=== PATIENT | female | born 1995 | race Caucasian/White ===

== ENCOUNTER 2016-06-10 14:34 | Emergency (ER) | payer OTHER ==
[~2016-06-10] VITALS: Ht 154.9 cm; Wt 56.9 kg
[2016-06-10 14:53] VITALS: BP 126/85; PULSE 95; RESP 15; TEMP 98.7; O2SAT 98
--- NOTE | 2016-06-10 15:35 | PD ---
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 She also complains of pelvic discomfort. However, she states it is not pain. She denies any vomiting, fevers, unusual vaginal discharge, or other symptoms. Modifying Factors: None Associated Signs & Symptoms: Vaginal bleeding Risk Factors: Recently sexually active PFSH Past Medical History LMP: 10 DAYS Social History Tobacco Use: No Allergies-Medications (Allergen,Severity, Reaction): Coded Allergies: No Known Allergies (Unverified , 06/10/16) Reported Meds & Prescriptions Reported Meds & Active Scripts Active No Active Prescriptions or Reported Medications Review of Systems Except as stated in HPI: all other systems reviewed are Neg Physical Exam Narrative GENERAL: Young white female patient currently awake, alert, oriented 3, not in acute distress. SKIN: Warm and dry. HEAD: Atraumatic. Normocephalic. EYES: Pupils equal and round. No scleral icterus. No injection or drainage. ENT: No nasal bleeding or discharge. Mucous membranes pink and moist. NECK: Trachea midline. No JVD. CARDIOVASCULAR: Regular rate and rhythm. No murmur appreciated. RESPIRATORY: No accessory muscle use. Clear to auscultation. Breath sounds equal bilaterally. GASTROINTESTINAL: Abdomen soft, mild pelvic tenderness without guarding or rebound, nondistended. Hepatic and splenic margins not palpable. GENITOURINARY: Normal external genitalia without lesions or erythema, she has a minor posterior full the laceration with small amount of blood. Vaginal vault with red blood but no significant drainage. Cervical os was closed without drainage. No cervical motion tenderness. Uterus nontender and nonenlarged. Bilateral adnexa nontender without masses. MUSCULOSKELETAL: No obvious deformities. No clubbing. No cyanosis. No edema. NEUROLOGICAL: Awake and alert. No obvious cranial nerve deficits. Motor grossly within normal limits. Normal speech. PSYCHIATRIC: Appropriate mood and affect; insight and judgment normal. Data Data Last Documented VS Vital Signs Date Time Temp Pulse Resp B/P Pulse Ox O2 Delivery O2 Flow Rate FiO2 06/10/16 15:58 97 06/10/16 14:53 98.7 95 15 126/85 Orders Beta Hcg (Quant/Titer) (06/10/16 15:31) Complete Blood Count With Diff (06/10/16 15:31) Comprehensive Metabolic Panel (06/10/16 15:31) Urinalysis - C+S If Indicated (06/10/16 15:31) Iv Access Insert/Monitor (06/10/16 15:31) Ecg Monitoring (06/10/16 15:31) Oximetry (06/10/16 15:31) Sodium Chloride 0.9% Flush (Ns Flush) (06/10/16 15:45) Ed Urine Pregnancytest Poc (06/10/16 15:31) Gc And Chlamydia Pcr (06/10/16 15:31) Wet Prep Profile (06/10/16 15:31) Urine Culture (06/10/16 15:35) Labs Laboratory Tests Test 06/10/16 06/10/16 06/10/16 15:35 15:45 16:05 Urine Collection Type CLEAN CATCH Urine Color YELLOW Urine Turbidity SLIGHT Urine pH 5.5 Urine Specific [place] 1.014 Urine Protein TRACE mg/dL Urine Glucose (UA) NEG mg/dL Urine Ketones NEG mg/dL Urine Occult Blood LARGE Urine Nitrite NEG Urine Bilirubin NEG Urine Leukocyte Esterase NEG Urine RBC INNUM /hpf Urine WBC 15-19 /hpf Urine Squamous Epithelial 0-5 /hpf Cells Microscopic Urinalysis Comment CULTURE INDICATED Urine Collection Time 15:35 White Blood Count 10.3 TH/MM3 Red Blood Count 4.65 MIL/MM3 Hemoglobin 13.0 GM/DL Hematocrit 39.0 % Mean Corpuscular Volume 83.9 FL Mean Corpuscular Hemoglobin 28.0 PG Mean Corpuscular Hemoglobin 33.3 % Concent Red Cell Distribution Width 13.1 % Platelet Count 157 TH/MM3 Mean Platelet Volume 9.1 FL Neutrophils (%) (Auto) 77.8 % Lymphocytes (%) (Auto) 14.0 % Monocytes (%) (Auto) 5.9 % Eosinophils (%) (Auto) 0.9 % Basophils (%) (Auto) 1.4 % Neutrophils # (Auto) 8.1 TH/MM3 Lymphocytes # (Auto) 1.4 TH/MM3 Monocytes # (Auto) 0.6 TH/MM3 Eosinophils # (Auto) 0.1 TH/MM3 Basophils # (Auto) 0.1 TH/MM3 CBC Comment DIFF FINAL Differential Comment Sodium Level 142 MEQ/L Potassium Level 3.8 MEQ/L Chloride Level 112 MEQ/L Carbon Dioxide Level 21.8 MEQ/L Anion Gap 8 MEQ/L Blood Urea Nitrogen 10 MG/DL Creatinine 0.83 MG/DL Estimat Glomerular Filtration 86 ML/MIN Rate Random Glucose 81 MG/DL Calcium Level 8.5 MG/DL Total Bilirubin 0.7 MG/DL Aspartate Amino Transf 12 U/L (AST/SGOT) Alanine Aminotransferase 18 U/L (ALT/SGPT) Alkaline Phosphatase 53 U/L Total Protein 7.0 GM/DL Albumin 3.8 GM/DL Human Chorionic Gonadotropin, LESS THAN 1 Quant MIU/ML Clue Cells (Wet Prep) NONE SEEN Vaginal Trichomonas (Wet Prep) NONE SEEN Vaginal Yeast (Wet Prep) NONE SEEN MDM Medical Decision Making Medical Screen Exam Complete: Yes Emergency Medical Condition: Yes Medical Record Reviewed: Yes Interpretation(s) Laboratory Tests Test 06/10/16 06/10/16 15:35 15:45 Urine Occult Blood LARGE (NEG) Urine RBC INNUM /hpf (0-3) Urine WBC 15-19 /hpf (0-5) Neutrophils (%) (Auto) 77.8 % (16.0-70.0) Neutrophils # (Auto) 8.1 TH/MM3 (1.8-7.7) Chloride Level 112 MEQ/L (98-107) Estimat Glomerular Filtration 86 ML/MIN (>89) Rate Aspartate Amino Transf 12 U/L (15-37) (AST/SGOT) Differential Diagnosis Pelvic discomfort, vaginal bleedingdysfunctional uterine bleeding versus vaginal lacerations versus UTI versus threatened AB versus ectopic Narrative Course On exam I do not see any obvious significant vaginal lacerations, just some minor one posteriorly. This does not appear to be bleeding significantly. Lab work shows that she is not . Abdomen is fairly benign and I'm not suspecting acute intra-abdominal process. Her wet prep is negative. She does have a UTI. I talked her further and she states that she did have sex last night but it was not especially rough or painful. At this point, my plan would be to release her with follow-up to CHEMISTRY SPECIALIST. Return for any worsening in symptoms, bleeding, pain, and as needed. The plan was discussed with her and she states understanding. Diagnosis Primary Impression: Vaginal bleeding between periods Scripts No Active Prescriptions or Reported Meds Disposition: 01 DISCHARGE HOME Condition: Stable Gaby Soto MD Jun 10, 2016 15:35
[2016-06-10] MEDS ORDERED: SODIUM CHLORIDE 0.9% FLUSH 10 ML FLUSH IV FLUSH PRN (15:45)
[2016-06-10 15:47] LABS: BLOOD, URINE LARGE (NEG); GLUCOSE,URINE NEG (NEG); KETONE, URINE NEG (NEG); NITRITE,URINE NEG (NEG); PH, URINE 5.5 (5.0-8.5)
[2016-06-10 15:51] LABS: METHOD OF COLLECTION CLEAN CATCH; URINE COLOR YELLOW (YELLW/STRAW)
[2016-06-10 15:51] LABS: AUTOMATED NEUTROPHIL # 8.1 TH/MM3 (1.8-7.7); BASOPHIL # 0.1 TH/MM3 (0-0.2); BASOPHIL % 1.4 % (0.0-2.0); EOSINOPHIL # 0.1 TH/MM3 (0-0.4); EOSINOPHIL % 0.9 % (0.0-4.0); HEMO FLAGS DIFF FINAL; LYMPHOCYTE # 1.4 TH/MM3 (1.0-4.8); MEAN CELL VOLUME 83.9 FL (80.0-100.0); MEAN CORPUSCULAR HGB CONC 33.3 % (32.0-36.0); MONO % 5.9 % (0.0-8.0); NEUT % 77.8 % (16.0-70.0); PLATELET COUNT 157 TH/MM3 (150-450); RED BLOOD COUNT 4.65 MIL/MM3 (4.00-5.30); RED CELL DISTRIBUTION WIDTH 13.1 % (11.6-17.2); WHITE BLOOD COUNT 10.3 TH/MM3 (4.0-11.0)
[2016-06-10 15:52] LABS: COMMENT (UR) CULTURE INDICATED; CULTURE IF INDICATED CULTURE INDICATED; RBC, URINE INNUM /hpf (0-3); SQUAMOUS EPITHELIAL CELL URINE 0-5 /hpf (0-5); WBC, URINE 15-19 /hpf (0-5)
[2016-06-10 15:58] VITALS: O2SAT 97
[2016-06-10 16:05] LABS: CHLORIDE 112 MEQ/L (98-107); POTASSIUM 3.8 MEQ/L (3.5-5.1); SODIUM (NA) 142 MEQ/L (136-145)
[2016-06-10 16:08] LABS: ANION GAP 8 MEQ/L (5-15); BICARBONATE 21.8 MEQ/L (21.0-32.0); BLOOD UREA NITROGEN 10 MG/DL (7-18)
[2016-06-10 16:11] LABS: ALT (GPT) 18 U/L (10-53); AST (GOT) 12 U/L (15-37); GLOMERULAR FILTRATION RATE 86 ML/MIN (>89)
[2016-06-10 16:13] LABS: TOTAL BILIRUBIN ADULT 0.7 MG/DL (0.2-1.0)
[2016-06-10 16:14] LABS: ALKALINE PHOSPHATASE 53 U/L (45-117)
[2016-06-10 16:16] LABS: BETA HCG QUANT LESS THAN 1 MIU/ML (0-5)
[2016-06-10] MEDS ORDERED: MACR100C2 PO (16:59)
[2016-06-11 02:32] LABS: CHLAMYDIA PCR NOT DETECTED (NOT DETECT); NEISSERIA PCR NOT DETECTED (NOT DETECT)
== END 2016-06-10 17:06 | disposition home or self-care (01) ==
LOC: PHED 14:34
DX: N93.9 Abnormal uterine and vaginal bleeding, unspecified (principal); N39.0 Urinary tract infection, site not specified; B95.0 Streptococcus, group A, as the cause of diseases classified elsewhere
CPT/HCPCS: 80053; 81001; 84702; 84703; 85025; 87086; 87210; 87491; 87591; 99284

== ENCOUNTER 2016-07-12 05:31 | Emergency (ER) | payer OTHER ==
[~2016-07-12] VITALS: Ht 154.9 cm; Wt 56.5 kg
[~2016-07-12 05:31] MED LIST: MACR100C2 PO
[2016-07-12 05:33] VITALS: BP 121/77; PULSE 78; RESP 16; TEMP 98.1; O2SAT 99
--- NOTE | 2016-07-12 05:48 | PD ---
HPI Chief Complaint: Abdominal Pain Time Seen by Provider: 05:48 Travel History International Travel<30 days: No Contact w/Intl Traveler<30days: No Traveled to known affect area: No History of Present Illness HPI 20-year-old female came to the emergency room with history of suprapubic sharp pain and cramps since this morning. Patient was getting ready to go to work when she suddenly developed this pain. Her period started yesterday. Patient says last month exactly this time she had similar symptoms and had gone to the [place] emergency room. She had a pelvic exam and blood test done there. She was told she had UTI and was discharged home on antibiotic. She did okay up until this morning. Currently she says her pain is 3-4 out of 10. No history of vomiting or diarrhea. Vital signs were stable otherwise. Patient says that she recently became sexually active. No history of fever or chills. [facility] Past Medical History Narrative Medical List of her past medical, surgical, social and family history was reviewed from the nursing note. ?: Not LMP: currently Social History Alcohol Use: Yes Tobacco Use: No Substance Use: No Allergies-Medications (Allergen,Severity, Reaction): Coded Allergies: No Known Allergies (Unverified , 07/12/16) Comments No known drug allergies. Reported Meds & Prescriptions Reported Meds & Active Scripts Active Narrative Medication List of her home medications reviewed from the nursing note. Review of Systems Except as stated in HPI: all other systems reviewed are Neg Physical Exam Narrative GENERAL: Awake, alert, no obvious distress SKIN: Focused skin assessment warm/dry. HEAD: Atraumatic. Normocephalic. EYES: Pupils equal and round. No scleral icterus. No injection or drainage. ENT: No nasal bleeding or discharge. Mucous membranes pink and moist. NECK: Trachea midline. No JVD. CARDIOVASCULAR: Regular rate and rhythm. No murmur appreciated. RESPIRATORY: No accessory muscle use. Clear to auscultation. Breath sounds equal bilaterally. GASTROINTESTINAL: Abdomen soft, non-tender, nondistended. Hepatic and splenic margins not palpable. MUSCULOSKELETAL: No obvious deformities. No clubbing. No cyanosis. No edema. NEUROLOGICAL: Awake and alert. No obvious cranial nerve deficits. Motor grossly within normal limits. Normal speech. PSYCHIATRIC: Appropriate mood and affect; insight and judgment normal. Data Data Last Documented VS Vital Signs Date Time Temp Pulse Resp B/P Pulse Ox O2 Delivery O2 Flow Rate FiO2 07/12/16 08:00 17 Orders Urinalysis - C+S If Indicated (07/12/16 05:57) Ed Urine Pregnancytest Poc (07/12/16 05:57) Ibuprofen (Motrin) (07/12/16 07:00) Labs Laboratory Tests Test 07/12/16 06:03 Urine Color YELLOW Urine Turbidity CLEAR Urine pH 5.5 Urine Specific [place] 1.026 Urine Protein TRACE mg/dL Urine Glucose (UA) NEG mg/dL Urine Ketones NEG mg/dL Urine Occult Blood MOD Urine Nitrite NEG Urine Bilirubin NEG Urine Urobilinogen LESS THAN 2.0 MG/DL Urine Leukocyte Esterase NEG Urine RBC LESS THAN 1 /hpf Urine WBC 4 /hpf Urine Squamous Epithelial 1 /hpf Cells Urine Mucus FEW /lpf Microscopic Urinalysis Comment CULT NOT INDICATED MDM Medical Decision Making Medical Screen Exam Complete: Yes Emergency Medical Condition: Yes Medical Record Reviewed: Yes Differential Diagnosis Cystitis, dysmenorrhea Narrative Course 6:48 AM patient's urine was negative. Awaiting for the UA to be resulted. I will give her by mouth Motrin. Procedures EKG Prior to Arrival: No Diagnosis Primary Impression: Dysmenorrhea Referrals: Primary Care Physician 2 days Additional Instructions: Please return to the ER if the condition worsens or any other new concerns. You can take [id number] Motrin/Tylenol/ibuprofen/Advil for your pain. Not lift anything heavy. Drink lots of fluid. Follow-up with your primary care in couple days. If the pain continues he needs to follow up with a DRUG ABUSE TECHNICIAN and probably get an ultrasound. Med/Other Pt SpecificInfo: No Change to Meds Disposition: 01 DISCHARGE HOME Condition: Stable Osvaldo Montalvo MD Jul 12, 2016 05:48
[2016-07-12 06:44] LABS: BLOOD, URINE MOD (NEG); COMMENT (UR) CULT NOT INDICATED; CULTURE IF INDICATED CULT NOT INDICATED; GLUCOSE,URINE NEG (NEG); KETONE, URINE NEG (NEG); MUCUS URINE FEW /lpf (OCC); NITRITE,URINE NEG (NEG); PH, URINE 5.5 (5.0-8.5); SQUAMOUS EPITHELIAL CELL URINE 1 /hpf (0-5); URINE COLOR YELLOW (YELLW/STRAW)
[2016-07-12] MEDS ORDERED: IBUPROFEN 600 MG TAB PO ONE (07:00)
[2016-07-12 08:00] VITALS: RESP 17
== END 2016-07-12 07:39 | disposition home or self-care (01) ==
LOC: NEPC 05:31
DX: N94.6 Dysmenorrhea, unspecified (principal)
CPT/HCPCS: 81001; 84703; 99283

== ENCOUNTER 2016-10-08 10:14 | Emergency (ER) | payer OTHER ==
[~2016-10-08] VITALS: Ht 157.5 cm; Wt 59.0 kg
[2016-10-08 10:19] VITALS: BP 122/85; PULSE 94; RESP 18; TEMP 98.9; O2SAT 100
[2016-10-08 11:23] LABS: AUTOMATED NEUTROPHIL # 3.6 TH/MM3 (1.8-7.7); BASOPHIL % 0.3 % (0.0-2.0); EOSINOPHIL # 0.1 TH/MM3 (0-0.4); EOSINOPHIL % 1.6 % (0.0-4.0); HEMATOCRIT 40.8 % (35.0-46.0); HEMO FLAGS DIFF FINAL; LYMPH % 34.9 % (9.0-44.0); LYMPHOCYTE # 2.2 TH/MM3 (1.0-4.8); MEAN CORPUSCULAR HGB CONC 33.3 % (32.0-36.0); MONO % 6.5 % (0.0-8.0); NEUT % 56.7 % (16.0-70.0); PLATELET COUNT 148 TH/MM3 (150-450); RED BLOOD COUNT 4.86 MIL/MM3 (4.00-5.30); RED CELL DISTRIBUTION WIDTH 13.1 % (11.6-17.2); WHITE BLOOD COUNT 6.4 TH/MM3 (4.0-11.0)
[2016-10-08 11:41] LABS: BICARBONATE 25.5 MEQ/L (21.0-32.0); POTASSIUM 4.4 MEQ/L (3.5-5.1)
[2016-10-08] MEDS ORDERED: ZOLO25TA PO (11:57)
--- NOTE | 2016-10-08 11:57 | PD ---
HPI Chief Complaint: Medical Clearance Time Seen by Provider: 10:23 Travel History International Travel<30 days: No Contact w/Intl Traveler<30days: No Traveled to known affect area: No History of Present Illness HPI Patient is a pleasant 21-year-old female who presents the emergency department with complaint of a myriad of symptoms over the last 8-12 months. She is complaint of anxiety, depression without suicidal ideation, hair loss, fatigue, anorexia, difficulty sleeping, intermittent abdominal discomfort. None of these symptoms are acutely worse, with the exception of her anxiety. Patient states that she had trouble sleeping last night over her symptoms prompting her ER visit today. She actually has a follow-up appointment scheduled with a primary care provider to establish care this , just 4 days from now. PFSH Past Medical History Medical History: Denies Significant Hx Diminished Hearing: No Immunizations Current: Yes Tetanus Vaccination: Unknown Influenza Vaccination: No ?: Not LMP: 2 weeks ago Past Surgical History Other Surgery: Yes (REMOVAL OF MOLE ) Social History Alcohol Use: Yes (OCC) Tobacco Use: No Substance Use: No Allergies-Medications (Allergen,Severity, Reaction): Coded Allergies: No Known Allergies (Unverified , 10/08/16) Reported Meds & Prescriptions Reported Meds & Active Scripts Active Zoloft (Sertraline HCl) 25 Mg Tab 25 Mg PO DAILY Review of Systems Except as stated in HPI: all other systems reviewed are Neg Physical Exam Narrative GENERAL: Anxious appearing female in no acute distress SKIN: Focused skin assessment warm/dry. No evidence of focal hair loss HEAD: Normocephalic. EYES: No scleral icterus. No injection or drainage. ENT: Mucous membranes pink and moist. NECK: Supple CARDIOVASCULAR: Regular rate and rhythm. No murmur appreciated. RESPIRATORY: No accessory muscle use. Clear to auscultation. Breath sounds equal bilaterally. GASTROINTESTINAL: Abdomen soft, non-tender, nondistended. MUSCULOSKELETAL: No obvious deformities. No edema. NEUROLOGICAL: Awake and alert. Motor grossly within normal limits. Normal speech. PSYCHIATRIC: Anxious Data Data Last Documented VS Vital Signs Date Time Temp Pulse Resp B/P Pulse Ox O2 Delivery O2 Flow Rate FiO2 10/08/16 10:19 98.9 94 18 122/85 100 Orders Basic Metabolic Panel (Bmp) (10/08/16 10:40) Complete Blood Count With Diff (10/08/16 10:40) Thyroid Stimulating Hormone (10/08/16 10:40) Labs Laboratory Tests Test 10/08/16 10:55 White Blood Count 6.4 TH/MM3 Red Blood Count 4.86 MIL/MM3 Hemoglobin 13.6 GM/DL Hematocrit 40.8 % Mean Corpuscular Volume 84.0 FL Mean Corpuscular Hemoglobin 28.0 PG Mean Corpuscular Hemoglobin 33.3 % Concent Red Cell Distribution Width 13.1 % Platelet Count 148 TH/MM3 Mean Platelet Volume 8.5 FL Neutrophils (%) (Auto) 56.7 % Lymphocytes (%) (Auto) 34.9 % Monocytes (%) (Auto) 6.5 % Eosinophils (%) (Auto) 1.6 % Basophils (%) (Auto) 0.3 % Neutrophils # (Auto) 3.6 TH/MM3 Lymphocytes # (Auto) 2.2 TH/MM3 Monocytes # (Auto) 0.4 TH/MM3 Eosinophils # (Auto) 0.1 TH/MM3 Basophils # (Auto) 0.0 TH/MM3 CBC Comment DIFF FINAL Differential Comment Sodium Level 141 MEQ/L Potassium Level 4.4 MEQ/L Chloride Level 107 MEQ/L Carbon Dioxide Level 25.5 MEQ/L Anion Gap 9 MEQ/L Blood Urea Nitrogen 9 MG/DL Creatinine 0.84 MG/DL Estimat Glomerular Filtration 84 ML/MIN Rate Random Glucose 79 MG/DL Calcium Level 8.5 MG/DL Thyroid Stimulating Hormone 1.130 uIU/ML [address] [place] [address] Medical Decision Making Medical Screen Exam Complete: Yes Emergency Medical Condition: Yes Medical Record Reviewed: Yes Differential Diagnosis 21-year-old female here with complaint of 8-12 months of anxiety, depression without suicidal ideation, hair loss, fatigue. My strong suspicion is that the symptoms are due to underlying anxiety and depressions and physical manifestations of this. She does not have a history of heavy menses to suggest anemia, thyroid abnormalities are on the differential. Narrative Course Patient was offered laboratory testing. CBC, BMP and TSH were obtained and normal. Discussed use of SSRIs such as Zoloft or Celexa that would help both with her anxiety and with her depression. Patient was amenable to this. She was given prescription for Zoloft and encouraged to continue to follow-up with her primary care provider in 4 days as scheduled. Diagnosis Primary Impression: Anxiety Referrals: Primary Care Physician 3 days Additional Instructions: Zoloft as prescribed. Follow-up with primary care physician as scheduled for . Med/Other Pt SpecificInfo: Prescription(s) given Scripts Sertraline (Zoloft)25 Mg Tab25 Mg PO DAILY #30 TAB Ref 0 Prov:Olive Domínguez MD 10/08/16 Disposition: 01 DISCHARGE HOME Condition: Stable Olive Domínguez MD Oct 08, 2016 11:57
[2016-10-12] MEDS ORDERED: TRIAM.1%T TOPICAL (12:20)
== END 2016-10-08 12:10 | disposition home or self-care (01) ==
LOC: NEPD 10:14
DX: F41.9 Anxiety disorder, unspecified (principal); F32.9 Major depressive disorder, single episode, unspecified; Z79.899 Other long term (current) drug therapy
CPT/HCPCS: 80048; 84443; 85025; 99283

== ENCOUNTER 2016-11-24 09:57 | Emergency (ER) | payer SELFPAY ==
[~2016-11-24] VITALS: Ht 157.5 cm; Wt 60.0 kg
[~2016-11-24 09:57] MED LIST changes: -MACR100C2 PO; +TRIAM.1%T TOPICAL; +ZOLO25TA PO
[2016-11-24 09:58] VITALS: BP 132/91; PULSE 98; RESP 17; TEMP 98.1; O2SAT 98
[2016-11-24] MEDS ORDERED: DIFL150T PO (11:14)
--- NOTE | 2016-11-24 11:19 | PD ---
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 This patient complains of vaginal burning and itching sensation. She is on her normal scheduled menstrual period but no other discharge noted. No lesions. No fever. She is not having pelvic pain. Symptoms severity is mild to moderate. She started using Diflucan yesterday case she thought she might have yeast infection. PFSH Past Medical History Anxiety: Yes Diminished Hearing: No Immunizations Current: Yes Tetanus Vaccination: Unknown ?: Not LMP: 11/23/16 Past Surgical History Surgical History: No Previous Surgery Other Surgery: Yes (REMOVAL OF MOLE ) Social History Alcohol Use: Yes (OCC) Tobacco Use: No Substance Use: No Allergies-Medications (Allergen,Severity, Reaction): Coded Allergies: No Known Allergies (Unverified , 11/24/16) Reported Meds & Prescriptions Reported Meds & Active Scripts Active Diflucan (Fluconazole) 150 Mg Tab 150 Mg PO ONCE Zoloft (Sertraline HCl) 25 Mg Tab 25 Mg PO DAILY Review of Systems General / Constitutional: No: Fever HENT: No: Headaches Cardiovascular: No: Chest Pain or Discomfort Respiratory: No: Cough Physical Exam Narrative GASTROINTESTINAL: Abdomen soft, non-tender, nondistended. Positive bowel sounds. No hepato-splenomegaly, or palpable masses. No guarding. SKIN: Focused skin assessment reveals no rash or ulcers. Skin is warm and dry. Palpation shows no induration or nodules. Pelvic: Speculum exam reveals scant blood in the vault. No cervical motion tenderness. No adnexal tenderness or mass. There is some thick white clumped discharge. Data Data Last Documented VS Vital Signs Date Time Temp Pulse Resp B/P (MAP) Pulse Ox O2 Delivery O2 Flow Rate FiO2 11/24/16 09:58 98.1 98 17 132/91 (105) 98 Orders Orders Ed Urine Pregnancytest Poc (11/24/16 10:44) MDM Medical Decision Making Medical Screen Exam Complete: Yes Emergency Medical Condition: Yes Medical Record Reviewed: Yes Differential Diagnosis Yeast vaginitis, cervicitis, STD Narrative Course I have reviewed the patient's electronic medical record. 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 diflucan written Urine is negative Diagnosis Primary Impression: Yeast vaginitis Additional Instructions: The patient was advised to follow up with their physician and return if they worsen. Med/Other Pt SpecificInfo: Prescription(s) given Scripts Fluconazole (Diflucan) 150 Mg Tab 150 MG PO ONCE for Infection, #1 TAB 0 Refills Prov: Ben Camarena MD 11/24/16 Disposition: 01 DISCHARGE HOME Condition: Stable Ben Camarena MD Nov 24, 2016 11:19
== END 2016-11-24 11:41 | disposition home or self-care (01) ==
LOC: NEPD 09:57
DX: B37.3 Candidiasis of vulva and vagina (principal)
CPT/HCPCS: 84703; 99283